=== PATIENT | female | born 1950 | race African-American/Black ===

== ENCOUNTER 2017-10-17 09:46 | Outpatient (CLI) | payer MEDICARE, MEDICAID | END 2017-10-17 09:47 | disposition home or self-care (01) | LOC: BICMAMMO 09:46 | PROVIDERS: ATTEND Internal Medicine Hematology & Oncology | DX: N95.9 Unspecified menopausal and perimenopausal disorder (principal); C50.411 Malignant neoplasm of upper-outer quadrant of right female breast | CPT/HCPCS: 77080 ==

== ENCOUNTER 2017-12-07 10:09 | Outpatient (CLI) | payer MEDICARE, MEDICAID | END 2017-12-07 10:10 | disposition home or self-care (01) | LOC: BICMRI 10:09 | PROVIDERS: ATTEND Psychiatry & Neurology Neurology | DX: G44.1 Vascular headache, not elsewhere classified (principal) | CPT/HCPCS: 70553; 82565 ==

== ENCOUNTER 2018-04-24 13:44 | Outpatient (CLI) | payer MEDICARE, MEDICAID ==
--- NOTE | 2018-04-24 15:48 | CT ---
CT OF THE ABDOMEN AND PELVIS WITHOUT CONTRAST: Date: 04/24/18 INDICATION: History of renal calculus and left-sided flank pain. Patient reports burning upon urination. FINDINGS: No definite renal or ureteral calculus is evident. No hydronephrosis is evident. There are small phle boliths within the left gonadal vein. Beam scattered artifact of the patient's left total hip prosthe sis slightly limits image detail of the lower pelvis. No definite free fluid is evident. Visualized a spects of the bladder are unremarkable. There are patchy opacities within the lingula which may reflect changes of pneumonia. Unopacified liver, pancreas, and adrenal glands appear within normal limits. The spleen remains surgi shanique absent from comparison dated 01/31/17. No free fluid or enlarged lymph nodes are evident. There are scattered vascular calcifications. There is small bowel anastomosis within the right lower quadrant of the abdomen which is stable. There is advanced osteoarthrosis of the right hip. There is mild spondylosis of the lumbar spine most pronounced at L5-S1. There is mild degenerative change of both SI joints. IMPRESSION: No renal or ureteral calculus. Patchy opacities in the lingula. Pneumonia is of concern. Recommend correlation with the physical e xam. POS: [facility]
== END 2018-04-24 13:45 | disposition home or self-care (01) ==
LOC: BICCT 13:44
PROVIDERS: ATTEND Urology
DX: N20.0 Calculus of kidney (principal); K14.8 Other diseases of tongue
CPT/HCPCS: 74176

== ENCOUNTER 2018-08-12 13:26 | Outpatient (CLI) | payer MEDICARE, MEDICAID ==
--- NOTE | 2018-08-12 16:29 | RAD ---
TWO VIEWS LEFT HIP: HISTORY: Pain. COMPARISON: None. FINDINGS: There is uncomplicated left hip prosthesis. No perihardware lucency. No fracture. Visualized left bony pelvis is unremarkable. IMPRESSION: Uncomplicated left hip arthroplasty. POS: [facility]
== END 2018-08-12 13:27 | disposition home or self-care (01) ==
LOC: RAD 13:26
PROVIDERS: ATTEND Nurse Practitioner Family
DX: M25.552 Pain in left hip (principal); Z96.642 Presence of left artificial hip joint

== ENCOUNTER 2018-08-27 14:07 | Outpatient (CLI) | payer MEDICARE, MEDICAID | END 2018-08-27 14:08 | disposition home or self-care (01) | LOC: BICMAMMO 14:07 | PROVIDERS: ATTEND Internal Medicine Hematology & Oncology | DX: Z08 Encounter for follow-up examination after completed treatment for malignant neoplasm (principal); Z85.3 Personal history of malignant neoplasm of breast | CPT/HCPCS: 77066; G0279 ==

== ENCOUNTER 2018-09-25 13:53 | Outpatient (CLI) | payer MEDICARE, MEDICAID ==
--- NOTE | 2018-09-25 14:34 | RAD ---
TWO VIEWS CHEST: Comparison: 08-17-15 History: Dyspnea. FINDINGS: Two views of the chest show normal sized cardiomediastinal silhouette. There is no evidence of consol idation, mass, or pleural effusion. Degenerative changes are seen in the spine. IMPRESSION: No evidence of acute cardiopulmonary disease. POS: [facility]
== END 2018-09-25 13:54 | disposition home or self-care (01) ==
LOC: RAD 13:53
PROVIDERS: ATTEND Anesthesiology Pain Medicine
DX: R06.00 Dyspnea, unspecified (principal)
CPT/HCPCS: 71046

== ENCOUNTER 2018-12-26 15:04 | Outpatient (CLI) | payer MEDICARE, MEDICAID ==
--- NOTE | 2018-12-26 17:15 | MRI ---
MRI BRAIN NONCONTRAST: 12/26/18 HISTORY: 68-year-old female with headache. FINDINGS: There is prominent hyperostosis frontalis interna. The ventricles are normal in size and configuratio n. There is no major intraaxial signal abnormality, restricted diffusion, midline shift or any other mass effect, recent intraaxial hemorrhage, or extraaxial fluid collection. IMPRESSION: Essentially normal. jn[] POS: [facility]
== END 2018-12-26 15:05 | disposition home or self-care (01) ==
LOC: BICMRI 15:04
PROVIDERS: ATTEND Family Medicine
DX: R51 Headache (principal)
CPT/HCPCS: 70551

== ENCOUNTER 2019-08-28 09:35 | Outpatient (CLI) | payer MEDICARE, MEDICAID ==
--- NOTE | 2019-09-04 13:25 | MMO ---
Bilateral MAMMO Bilat Diag DDI+IZABEL. CLINICAL HISTORY: Patient is 69 years old and is seen for diagnostic exam. The patient has no family history of breast cancer. The patient has a history of excisional breast biopsy procedure revealed invasive lobular right breast carcinoma in June, and Ultrasound guided core biopsy procedure revealed invasive lobular right breast carcinoma in May,. The patient has a history of right Ultrasound Guided Core Biopsy in May,, left Stereotatic Biopsy in July, and right Excisional Biopsy - benign. VIEWS: The views performed were: bilateral craniocaudal with tomosynthesis; bilateral mediolateral oblique with tomosynthesis; and bilateral mediolateral with tomosynthesis. FILMS COMPARED: The present examination has been compared to prior imaging studies performed at [facility] on 04/07/2016, 05/02/2017, 05/11/2017 and 08/27/2018. This study has been interpreted with the assistance of computer-aided detection. MAMMOGRAM FINDINGS: The breasts are heterogeneously dense, which could obscure a lesion on mammography. Finding 1: There are stable post operative changes seen in the right breast. Finding 2: There are stable benign appearing calcifications seen in both breasts. There are no suspicious masses, suspicious calcifications, or new areas of architectural distortion. IMPRESSION: THERE IS NO MAMMOGRAPHIC EVIDENCE OF MALIGNANCY. A ROUTINE FOLLOW-UP MAMMOGRAM IN 1 YEAR IS RECOMMENDED. THE RESULTS OF THIS EXAM WERE SENT TO THE PATIENT. ACR BI-RADS Category 2 - Benign finding MAMMOGRAPHY NOTE: 1. A negative mammogram report should not delay a biopsy if a dominant of clinically suspicious mass is present. 2. Approximately 10% to 15% of breast cancers are not detected by mammography. 3. Adenosis and dense breasts may obscure an underlying neoplasm. Reported by: DEREK ROGERS MD Electonically Signed: [id number]
== END 2019-08-28 09:36 | disposition home or self-care (01) ==
LOC: BICMAMMO 09:35
PROVIDERS: ATTEND Internal Medicine Hematology & Oncology
DX: Z08 Encounter for follow-up examination after completed treatment for malignant neoplasm (principal); Z85.3 Personal history of malignant neoplasm of breast
CPT/HCPCS: 77066; G0279

== ENCOUNTER 2019-11-26 19:17 | Inpatient (IN) | payer MEDICARE, MEDICAID ==
--- NOTE | 2019-11-26 19:46 | RAD ---
RADIOGRAPH CHEST 1 VIEW: DATE: 11/26/2019 TIME: 7:42 PM HISTORY: 69-year-old female with chest pain COMPARISON: 09/25/2018 FINDINGS: Shallower inspiration on the current study may be responsible for the minimally increased attenuation of right lung compared to previous study, as well as slight asymmetrical positioning. No consolidation. No pneumothorax. No evidence of pneumoperitoneum. Again noted is the severe bony hyper trophy at the inferior aspect of right humeral head. IMPRESSION: 1. No compelling evidence of acute disease. 2. Severe osteoarthrosis of glenohumeral joint of right shoulder.
[2019-11-26 19:55] LABS: Hemoglobin 11.9 g/dL (12.0-16.0); Mean Corpuscular HGB CONC 31.9 g/dL (32.0-36.0); Mean Corpuscular Hemoglobin 31.4 pg (27.0-31.0); Mean Corpuscular Volume 98.6 fL (78.0-98.0); Platelet Count 269 thou/uL (130-400); RBC Distribution Width 12.7 % (11.5-14.5); White Blood Cell (WBC) Count 19.8 thou/uL (4.8-10.8)
[2019-11-26 20:14] LABS: Band 21 % (5-11); Eosinophils 1 % (0-10); Lymphocytes 1 % (21-51); MDiff Complete? YES; Metamyelocyte 1 % (0-0); Monocytes 2 % (0-10); Neutrophil 74 % (42-75); Platelet Morphology Comment Appears Adequate; Polychromasia SLIGHT = 2-3 cells (100X) (0-2/hpf)
[2019-11-26 20:15] LABS: ALT (SGPT) 852 U/L (8-55); AST (SGOT) 1121 U/L (5-34); Albumin 3.5 g/dL (3.4-4.8); Alkaline Phosphatase 273 U/L (40-110); Anion Gap 14 mmol/L (10-20); BUN (Urea Nitrogen) 13 mg/dL (9.8-20.1); Calc. Creatinine Clearance 0 mL/min (70-130); Carbon Dioxide 19 mmol/L (23-31); Chloride 110 mmol/L (98-107); Estimated GFR-MDRD 41; Globulin 3.5 g/dL (2.4-3.5); Glucose 110 mg/dL (80-115); Potassium 3.8 mmol/L (3.5-5.1); Sodium 139 mmol/L (136-145)
[2019-11-26 20:28] LABS: Lipase 3343 U/L (8-78)
[2019-11-26] MEDS ORDERED: Ondansetron PF 4 MG/2 ML Vial ONE (20:43)
[2019-11-26] MEDS ORDERED: Morphine 4 MG/ML VIAL ONE (20:43)
[2019-11-26] MEDS ORDERED: Cefepime 2 GM VIAL ONE (20:44)
--- NOTE | 2019-11-26 21:40 | ULT ---
ULTRASOUND GALLBLADDER RIGHT UPPER QUADRANT: 11/26/19 HISTORY: Abdominal pain. COMPARISON: None. FINDINGS: Real time zhou scale and color evaluation of the right upper quadrant of the abdomen was performed. Portal vein is patent. Hepatic echotexture appears normal. There is mild intrahepatic biliary dilatat ion. The common bile duct is dilated at 1.2 cm. No pericholecystic fluid. No gallbladder distention. Liver measures 13.6 cm in length. There is a cyst anterior pole right kidney measuring 1.6 cm in size. Right kidney measures 8.7 x 4.4 x 4.8 cm. IMPRESSION: 1. Dilated common bile duct without intraluminal choledocholithiasis appreciated. MRCP may be be neficial. 2. Simple cyst of the right kidney. 3. Mild intrahepatic biliary dilatation. 4. No cholelithiasis or evidence of cholecystitis. POS: [facility]
[2019-11-26] MEDS ORDERED: metroNIDAZOLE 500 MG/100 ML BAG ONE (22:16)
[2019-11-26] MEDS ORDERED: diphenhydrAMINE 25 MG CAP ONE (22:23)
[2019-11-26] MEDS ORDERED: MEROPENEM 1 GM/50 ML 1 GM in Premix Bag 1 BAG IVPB SCH (22:45)
[2019-11-26] MEDS ORDERED: hydrALAZINE 20 MG/ML VIAL SLOW IVP PRN (22:48)
[2019-11-26] MEDS ORDERED: cloNIDine 0.1 MG TAB PO PRN (22:48)
[2019-11-26] MEDS ORDERED: Morphine 2 MG/ML SYRINGE SLOW IVP PRN (22:48)
[2019-11-26] MEDS ORDERED: Ondansetron PF 4 MG/2 ML Vial IVP PRN (22:48)
[2019-11-26] MEDS ORDERED: Labetalol HCl 100 MG/20 ML VIAL SLOW IVP PRN (22:48)
[2019-11-26] MEDS ORDERED: Promethazine HCl 12.5 MG in Sodium Chloride 0.9% 50 ML IVPB PRN (22:48)
--- NOTE | 2019-11-26 22:50 | PDOC.HHP ---
Hospitalist HPI - History of Present Illness Abdominal pain History of Present Illness: Patient is a 69 year old female with PMH HTN who presents to ED for abdominal pain raditing to back x 1-2 days. She denies history of gallstones, has her GB, PMH significant for back pain and osteoarthritis and hip replacement, patient reports that the pain is on the R side, decreased PO intake, afebrile, she had low BP but improved with IVF, labs concerning for elevated LFTs, elevated lipase , given this RUQ US performed w/ gallstones, choledocolithiasis, ED contacted surgery Dr Leon and GI Dr Crowder and patient to be admitted for presumed cholecystitis/choledocolithiasis/gallstone pancreatitis. ED Course: VITAL SIGNS SunNovember 26, 2019 22:52 NORAH Degroot Jennifer BP: 106/76 Pulse: 88 Resp: 18 Temp: 98.7 (Oral) Pain: 9 O2 sat: 98 on (Room Air) Time: 11/26/2019 22:52. Hospitalist ROS - Review of Systems Constitutional: denies: fever, chills, sweats, weakness, malaise, other Eyes: denies: pain, vision change, conjunctivae inflammation, eyelid inflammation, redness, other ENT: denies: ear pain, ear discharge, nose pain, nose discharge, nose congestion , mouth pain, mouth swelling, throat pain, throat swelling, other Respiratory: denies: cough, dry, shortness of breath, hemoptysis, SOB with excertion, pleuritic pain, sputum, wheezing, other Cardiovascular: denies: chest pain, palpitations, orthopnea, paroxysmal noc. dyspnea, edema, light headedness, other Gastrointestinal: reports: nausea, vomiting, abdominal pain. denies: diarrhea, constipation, melena, hematochezia, other Genitourinary: denies: dysuria, frequency, incontinence, hematuria, retention, other Musculoskeletal: reports: back pain. denies: neck pain, shoulder pain, arm pain , hand pain, leg pain, foot pain, other Skin: denies: rash, lesions, palak, bruising, other Neurological: denies: weakness, numbness, incoordination, change in speech, confusion, seizures, other Hospitalist History - Past Medical History Other Medical History: HTN arthritis back pain depression - Past Surgical History Other Surgical History: C section tubal ligation hip replacement - Family History Family History: reports: no pertinent history - Social History Smoking Status: Never smoker Alcohol: reports: None Drugs: reports: none - Exam General Appearance: NAD, awake alert Eye: PERRL, anicteric sclera ENT: normocephalic atraumatic, no oropharyngeal lesions, moist mucosa Neck: supple, symmetric, no JVD, no thyromegaly, no lymphadenopathy, no carotid bruit Heart: RRR, no murmur, no gallops, no rubs, normal peripheral pulses Respiratory: CTAB, no wheezes, no rales, no ronchi, normal chest expansion, no tachypnea, normal percussion Gastrointestinal: soft, non-distended, normal bowel sounds, no palpable masses, no hepatomegaly, no splenomegaly, no bruit Gastrointestinal - other findings: tenderness to palpation RUQ, +duvall sign Extremities: no cyanosis, no clubbing, no edema Skin: normal turgor, no lesions, no rashes Neurological: cranial nerve grossly intact, normal sensation to touch, no weakness, no focal deficits, no new deficit Musculoskeletal: normal tone, normal strength, no muscle wasting Psychiatric: normal affect, normal behavior, A&O x 3 Hospitalist Results - Labs Result Diagrams: 11/26/19 19:45 11/26/19 19:45 Lab results: WBC 19.8 thou/uL (4.8-10.8) H 11/26/19 19:45 Hgb 11.9 g/dL (12.0-16.0) L 11/26/19 19:45 Hct 37.4 % (36.0-47.0) 11/26/19 19:45 MCV 98.6 fL (78.0-98.0) H 11/26/19 19:45 Plt Count 269 thou/uL (130-400) 11/26/19 19:45 Band Neuts % (Manual) 21 % (5-11) H 11/26/19 19:45 Sodium 139 mmol/L (136-145) 11/26/19 19:45 Potassium 3.8 mmol/L (3.5-5.1) 11/26/19 19:45 Chloride 110 mmol/L (98-107) H 11/26/19 19:45 Carbon Dioxide 19 mmol/L (23-31) L 11/26/19 19:45 BUN 13 mg/dL (9.8-20.1) 11/26/19 19:45 Creatinine 1.51 mg/dL (0.6-1.1) H 11/26/19 19:45 Glucose 110 mg/dL (80-115) 11/26/19 19:45 Lactic Acid 1.6 mmol/L (0.5-2.2) 11/26/19 21:27 Calcium 9.0 mg/dL (7.8-10.44) 11/26/19 19:45 Total Bilirubin 3.0 mg/dL (0.2-1.2) H 11/26/19 19:45 AST 1121 U/L (5-34) H 11/26/19 19:45 ALT 852 U/L (8-55) H 11/26/19 19:45 Alkaline Phosphatase 273 U/L (40-110) H 11/26/19 19:45 Troponin I 0.016 ng/mL (< 0.028) 11/26/19 19:45 Serum Total Protein 7.0 g/dL (6.0-8.3) 11/26/19 19:45 Albumin 3.5 g/dL (3.4-4.8) 11/26/19 19:45 Lipase 3343 U/L (8-78) H 11/26/19 19:45 Additional comment: US Gallbladder RUQ Observe DT: SunNovember 26, 2019 19:35 GB ULTRASOUND GALLBLADDER RIGHT UPPER QUADRANT: 11/26/19 HISTORY: Abdominal pain. COMPARISON: None. FINDINGS: Real time zhou scale and color evaluation of the right upper quadrant of the abdomen was performed. Portal vein is patent. Hepatic echotexture appears normal. There is mild intrahepatic biliary dilatat ion. The common bile duct is dilated at 1.2 cm. No pericholecystic fluid. No gallbladder distention. Liver measures 13.6 cm in length. There is a cyst anterior pole right kidney measuring 1.6 cm in size. Right kidney measures 8.7 x 4.4 x 4.8 cm. IMPRESSION: 1. Dilated common bile duct without intraluminal choledocholithiasis appreciated. MRCP may be be neficial. 2. Simple cyst of the right kidney. 3. Mild intrahepatic biliary dilatation. 4. No cholelithiasis or evidence of cholecystitis. Hospitalist H&P A/P - Plan Plan: Patient is a 69 year old female with PMH HTN admitted for: # cholecystitis w/ choledocolistiasis and likely gallstone pancreatitis - admit to telemetry - PCN allergy noted, start flagyl/levaquin - GI and general surgery consulted by ED, NPO for likely procedure EGD/ERCP vs CCY w/ IOC - follow cultures - IVF, trend labwork, PRN pain and nausea medication in place # sepsis secondary to abdominal infection above - treat as above # history of OA, HTN - PRN pain and BP contol meds in chart # JENNIFER - suspect due to sepsis, IVF and trend BMP # sinus arrhtyhmia on EKG - rate 85 on EKG, monitor on telemetry
[2019-11-26 23:59] VITALS: BMI 44.6
[2019-11-27] MEDS: Sodium Chloride 0.9% 1,000 ML IV SCH ×4 (00:09→23:07)
[2019-11-27] MEDS ORDERED: Montelukast Sodium 10 mg Tablet PO SCH (00:15)
[2019-11-27] MEDS: diphenhydrAMINE 25 MG CAP PO PRN ×2 (02:27→06:12)
[2019-11-27] MEDS: Morphine 2 MG/ML SYRINGE SLOW IVP PRN ×3 (02:27→08:58)
[2019-11-27 05:25] LABS: #Basophils 0.1 thou/uL (0.0-0.2); #Eosinphils 0.5 thou/uL (0.0-0.7); #Lymphocytes 1.1 thou/uL (1.20-3.40); #Monocytes 0.8 thou/uL (0.11-0.59); #Neutrophils 16.4 thou/uL (1.40-6.50); %Basophils 0.6 % (0.0-1.0); %Eosinophils 2.9 % (0.0-10.0); %Lymphocytes 5.7 % (21.0-51.0); %Monocytes 4.3 % (0.0-10.0); %Neutrophils 86.5 % (42.0-75.0); Hemoglobin 10.9 g/dL (12.0-16.0); Mean Corpuscular HGB CONC 30.6 g/dL (32.0-36.0); Mean Corpuscular Hemoglobin 30.9 pg (27.0-31.0); Mean Platelet Volume 7.9 fL (7.4-10.4); Platelet Count 243 thou/uL (130-400); RBC Distribution Width 12.8 % (11.5-14.5); Red Blood Cell (RBC) Count 3.53 mill/uL (4.20-5.40)
[2019-11-27 05:49] LABS: ALT (SGPT) 631 U/L (8-55); AST (SGOT) 618 U/L (5-34); Albumin 3.2 g/dL (3.4-4.8); Alkaline Phosphatase 239 U/L (40-110); Anion Gap 13 mmol/L (10-20); BUN (Urea Nitrogen) 16 mg/dL (9.8-20.1); Bilirubin, Direct 2.9 mg/dL (0.1-0.3); Bilirubin, Total 3.7 mg/dL (0.2-1.2); Calc. Creatinine Clearance 67 mL/min (70-130); Calcium 8.3 mg/dL (7.8-10.44); Carbon Dioxide 15 mmol/L (23-31); Chloride 115 mmol/L (98-107); Estimated GFR-MDRD 44; Glucose 63 mg/dL (80-115); Magnesium 1.7 mg/dL (1.6-2.6); Potassium 3.5 mmol/L (3.5-5.1); Protein, Total 6.4 g/dL (6.0-8.3); Sodium 139 mmol/L (136-145)
[2019-11-27] MEDS ORDERED: metroNIDAZOLE 500 MG in Premix Bag 1 BAG IVPB SCH (06:00)
[2019-11-27] MEDS ORDERED: Prevnar 13-Val Conj/PF 0.5 ML SYRINGE IM ONE (09:00)
[2019-11-27] MEDS: Polyethylene Glycol 3350 17 GM Packet PO SCH (09:01)
[2019-11-27 10:12] LABS: HBCM Index 0.05 S/CO (0-0.79); HBSAg Index 0.21 S/CO (0-0.99); Hep A IgM AB Non-Reactive (NonReactive); Hep A IgM S/CO 0.11 S/CO (0-0.79); Hep B Surf Ag Non-Reactive S/CO (NonReactive); Hep C IgG Ab Non-Reactive (NonReactive); Hep C Index 0.14 S/CO (0-0.79); Hepatitis B Core IgM Abs Non-Reactive (NonReactive)
[2019-11-27 10:56] LABS: INR-International Normal Ratio 1.5; Prothrombin Time 18.2 sec (12.0-14.7)
[2019-11-27] MEDS ORDERED: Lidocaine 1% PF 5 ML VIAL ONE (10:59)
[2019-11-27] MEDS ORDERED: EPINEPHrine 1 MG/10 ML Abboject SYRINGE ONE (10:59)
[2019-11-27] MEDS ORDERED: Rocuronium Bromide 10 MG/ML (10ML VIAL) ONE (10:59)
[2019-11-27] MEDS ORDERED: PROPOFOL 200 MG/20 ML VIAL ONE (10:59)
[2019-11-27] MEDS ORDERED: Ondansetron PF 4 MG/2 ML Vial ONE (10:59)
[2019-11-27] MEDS ORDERED: Glycopyrrolate 0.2 MG/ML 5 ML SYRINGE ONE (10:59)
[2019-11-27] MEDS ORDERED: Succinylcholine Chloride 20 MG/ML 10 ml SYRINGE FS ONE (10:59)
[2019-11-27] MEDS ORDERED: PHENYLEPHRINE-NS 100 MCG/ML 10 ML SYRINGE ONE (10:59)
[2019-11-27] MEDS ORDERED: Dexamethasone 20 MG/5 ML VIAL ONE (10:59)
[2019-11-27] MEDS ORDERED: Indomethacin 50 MG SUPP ONE (12:09)
[2019-11-27] MEDS ORDERED: Iothalamate Meglumine 60% 30 ML VIAL FS ONE (12:09)
[2019-11-27] MEDS ORDERED: Midazolam HCl 2 mg/2 ml Vial ONE (12:33)
[2019-11-27] MEDS ORDERED: Fentanyl 100 MCG/2 ML VIAL ONE (12:33)
[2019-11-27] MEDS: MEROPENEM 1 GM/50 ML 1 GM in Premix Bag 1 BAG IVPB SCH ×2 (13:26→23:03)
--- NOTE | 2019-11-27 15:08 | RAD ---
ERCP: 11/27/19 HISTORY: Abdominal pain. FINDINGS/IMPRESSION: Thirteen spot fluoroscopic intraoperative images during ERCP demonstrate opacification of the common bile duct, left hepatic duct and its branches and portion of the right hepatic duct and the gallbladd er. The bile ducts appear dilated. No persistent filling defects are however seen. POS: [facility]
--- NOTE | 2019-11-27 16:18 | PDOC.HOSPP ---
- Subjective Encounter Date: 11/27/19 Encounter Time: 04:10 non-verbal Subjective: pt seen after came abck from ERCP. dtr at [facility]. pt states that she has abd pain still. - Objective Vital Signs & Weight: Vital Signs (12 hours) Temp Pulse Resp BP Pulse Ox 11/27/19 07:38 98.3 F 82 16 104/57 L 99 11/27/19 04:15 98.2 F 81 18 96/58 L 100 Weight Weight 252 lb 1 oz I&O: 11/26/19 11/27/19 11/28/19 06:59 06:59 06:59 Intake Total 650 Balance 650 Result Diagrams: 11/27/19 05:13 11/27/19 05:13 Hospitalist ROS - Medication Medications: Active Medications Generic Name Dose Route Start Last Admin Trade Name Freq PRN Reason Stop Dose Admin Diphenhydramine HCl 25 mg 11/27/19 02:07 11/27/19 06:12 Benadryl PO 25 mg Q4H PRN Administration Itching Sodium Chloride 1,000 mls @ 125 mls/hr 11/26/19 23:45 11/27/19 05:14 Normal Saline 0.9% IV 1,000 mls .Q8H YESI Administration Meropenem 1 gm/ Device 50 mls @ 100 mls/hr 11/27/19 11:00 11/27/19 13:26 IVPB Not Given 1100,2300 YESI Morphine Sulfate 2 mg 11/27/19 02:22 11/27/19 08:58 Morphine SLOW IVP 2 mg Q2H PRN Administration Moderate to Severe Pain (6-10) Pantoprazole Sodium 40 mg 11/27/19 09:00 11/27/19 08:59 Protonix PO 40 mg DAILY YESI Administration Polyethylene Glycol 17 gm 11/27/19 09:00 11/27/19 09:01 Miralax PO Not Given DAILY YESI Sodium Chloride 10 ml 11/27/19 09:00 11/27/19 08:59 Flush - Normal Saline IVF 10 ml Q12HR YESI Administration - Exam General Appearance: awake alert Eye: PERRL ENT: normocephalic atraumatic Neck: supple Heart: RRR Respiratory: CTAB, normal chest expansion Gastrointestinal: soft, normal bowel sounds, tender to palpation, distended Neurological: no focal deficits Psychiatric: normal affect, A&O x 3 Hosp A/P - Plan # cholecystitis w/ choledocolistiasis Bililary cholelithiasis Bilary cholecystitis - empiric merum - s/p ERCP showing dilations of biliary tree. -prob lab choly tomorrow -NPO and pain control with morphine and on IVF. # sepsis secondary to abdominal infection above - -fw on the adolfo # history of OA, HTN - -several PRN BP meds on board. # JENNIFER - suspect due to sepsis - monitor the renal fn. GI ppx - PPI
--- NOTE | 2019-11-27 17:06 | CON ---
DATE OF CONSULTATION: 11/27/2019 REASON FOR CONSULT: Biliary pancreatitis. HISTORY OF PRESENT ILLNESS: Ms. Lion is a 69-year-old female who was admitted to the hospital last night with right upper quadrant pain, had radiated to her right back, it started a few days ago. She has had this intermittently in the past but never this bad. When she came to the hospital, she was found to have elevated LFTs and an elevated lipase. An ultrasound showed dilated common bile duct, but no gallstones. She has had chronic issues with osteoarthritis and hip replacement and back pain, and it seems that she was evaluated in [address] Skinner. An EGD showed no evidence of ampullary masses. She ultimately underwent an EUS and that study showed just ampullary stenosis with normal LFTs and no bouts of pancreatitis at that time. Recommendations from the endoscopist were, at that time, just to observe her. However, now she appears to have pancreatitis with elevated LFTs and likely is related to ampullary stenosis and sludge or small stones. [place] [address]. She had some fever and chills at home. Presently, she has been started on IV fluids and antibiotics after cultures were obtained. Presently, her pain is a little bit better, although she did receive some morphine this morning. Lipase this morning is pending. LFTs remain elevated. AST, ALT are a little bit further down, but the bilirubin is a little bit higher. PAST MEDICAL HISTORY: Notable for history of breast cancer in 2016. She states this is resolved. She has a history of small bowel resection for a small area of ischemia in [address] Wilkins. The etiology of that was unclear. She has had a previous colonoscopy in 2013, which was reportedly normal with Dr. Skinner. She had a previous EGD in 2016 to look at the ampulla and that was normal and she had an EUS after that. He told me that when I called him today. Arthritis, hypertension. She has had some episodes of overdose of anxiety medicines in the past that were nonintentional. PAST SURGICAL HISTORY: , back surgery, tubal ligation, small bowel resection for the ischemia as noted above and the endoscopies as noted above. She has also had a left hip replacement. PSYCHIATRIC HISTORY: Depression in the past. REVIEW OF SYSTEMS: Positive for shortness of breath. She states she uses inhaler at home, she does not know why. She denies any history of exertional chest pain. She denies any hemoptysis, fever, chills, rashes, myalgias, arthralgias, or flu-like symptoms. MEDICATIONS: 1. Home medications. a. inhaler. b. Hydroxyzine. c. Ventolin inhaler. d. Topiramate. e. Sumatriptan. f. Propranolol. g. Montelukast sodium. h. Kim-D. i. Vitamin D. j. Atorvastatin. k. Aspirin daily. 2. Medications here. a. DuoNeb. b. Catapres. c. Benadryl. d. Hydralazine. e. Labetalol. f. Levofloxacin. g. Metronidazole. h. Singulair. i. Morphine p.r.n. j. Zofran p.r.n. k. Protonix 40 daily. l. MiraLAX. m. Phenergan p.r.n. n. Normal saline at 125 an hour. SOCIAL HISTORY: She denies smoking. She drank in the past, but does not now. She does not use drugs. FAMILY HISTORY: Noncontributory. PHYSICAL EXAMINATION: VITAL SIGNS: Temperature is 98.3, pulse 82, blood pressure was 96/58 at 4 this morning, 104/57 now. GENERAL: She is alert and oriented to person, place, and time. She has a granddaughter at the bedside, who works here at the hospital. She is nonicteric. NECK: Supple, no adenopathy. LUNGS: Clear except for some expiratory wheezing. HEART: Regular rate and rhythm. ABDOMEN: Soft. There is tenderness in the right upper quadrant. There is no rib tenderness. There is no rebound. There is no guarding. EXTREMITIES: No clubbing, cyanosis, or edema. LABORATORY DATA: Sodium 139; potassium 3.5; bicarb 15, it was 19 yesterday. , anion gap is 13. Creatinine is 1.42, it was 1.51 yesterday. Bilirubin is 3.7, it was 3 yesterday. AST is 618, it was 1121 yesterday. ALT is 631, it was 852 yesterday. Alkaline phosphatase is 239, it was 273 yesterday. Previously all her LFTs have been normal except for she had a mild alkaline phosphatase elevation in 2014. Direct bilirubin is 2.9. Her lipase was 3343 yesterday. Labs were pending today. Urine not done. [place] [address], it was 19 yesterday, MCV is 101, platelet count is 243. Blood cultures are pending from yesterday. ASSESSMENT: 1. 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 She may have cholangitis or elevated white count. She is feeling a little better today. Her LFTs have come down some and she may have passed a stone or may be opening up, but with her history of fever and chills at home and rigors and elevated white count, concern for cholangitis exists. 2. Pancreatitis. She seems to be hemodynamically stable. She probably needs a little bit extra fluid. Her hemoglobin has not really come down, but her BUN and creatinine have not gone. Hemoglobin has dropped about a gram with hydration. With her shortness of breath, we will not increase her fluids this time. PLAN: ERCP today. Possible cholecystectomy tomorrow depending on ERCP findings. Risks, benefits, possible complication were discussed with the patient and family. Granddaughter is here at the bedside. There is some risk in making her pancreatitis worse. However, with the symptoms concerning for cholangitis and persistent elevated LFTs and concern for ongoing biliary obstruction and ongoing pain, I think we should proceed with ERCP today. I think the benefits outweigh the risks. They understand this and agree and we will go ahead and proceed with that later today. Job ID: [id number]
[2019-11-27] MEDS: hydrOXYzine 25 MG TAB PO PRN (17:23)
[2019-11-27] MEDS: Montelukast Sodium 10 mg Tablet PO SCH (20:20)
[2019-11-27] MEDS: Acetaminophen 325 MG TAB PO PRN (20:31)
--- NOTE | 2019-11-27 21:15 | OP ---
DATE OF PROCEDURE: 11/27/2019 PRE-PROCEDURE DIAGNOSES: 1. Biliary pancreatitis. 2. Suspected cholangitis. 3. History of ampullary stenosis. POSTPROCEDURE DIAGNOSES: 1. Retained gastric contents in the stomach. 2. Normal-appearing ampulla with some debris around it consistent with passage of sludge versus small stone debris. 3. Mild cholangitis with slightly purulent bile. 4. Gallstone noted on filling of the gallbladder. 5. 2 cm common bile duct with no evidence of intraductal obstruction. 6. After sphincterotomy, purulent material came to the ampulla and some sludge. Sweeping the duct with balloon showed no overt large stones or filling defects. 7. Post sphincterotomy bleeding at the apex of the sphincter and this was controlled with injection of 1:10,000 epinephrine 10 mL and then with 10-Comoran heater probe cautery with good hemostasis. PROCEDURES: Endoscopic retrograde cholangiopancreatography and sphincterotomy with control of bleeding. RECOMMENDATIONS: 1. Continue antibiotics. 2. Monitor LFTs and lipase. 3. If signs of recurrent bleeding, may need repeat endoscopy to control of bleeding. 4. Consider surgical consultation for lap choly in 2 to 3 days, not tomorrow. ANESTHESIA: General. PROCEDURE IN DETAIL: After the patient was informed of the risks, benefits, and possible complications of endoscopy including perforation, reaction to medication, aspiration, pancreatitis, and bleeding, and family was informed this as well, informed consent was obtained. The patient was brought to the endoscopy suite, where she was intubated and placed in prone position. Side-viewing duodenoscope was advanced through the esophagus into the stomach where a large amount of food was encountered. The scope was then slowly advanced beyond this where the pylorus was identified into the duodenum in second portion and was brought into view, which appeared normal. Cannulation was obtained initially with a guidewire and then the catheter followed this up into the biliary tree. Injection of contrast revealed a 2 cm dilated duct, it was actually difficult to fill the duct. We were not able to fill it completely due to its large reservoir size. The gallbladder did begin to fill as well which made it impossible to fill the entire bile duct. There were stones seen in the gallbladder. There was no evidence of intrahepatic ductal filling defects or strictures. The common hepatic duct appeared normal. In the distal duct, there was concern for some small stones or debris. Over the guidewire, a sphincterotomy was performed about 15 to 18 mm in size with good hemostasis. A 15 to 18 mm balloon was advanced in the biliary tree and occlusion cholangiogram performed. The duct was swept several times with some small amount of debris and purulent like bile obtained. Bleeding then ensued from the apex of the sphincterotomy and there appeared to be a small tear there from the balloon. At this point in time, we observed it and it has continued to bleed. We injected 1:10,000 epinephrine ultimately up to 10 mL with some hemostasis. There was still slight oozing. At this point in time, a 7-Comoran heater probe was used to control bleeding. After this, there was good control of hemorrhage. There was drainage of contrast and bile from the biliary tree and no clot. The scope was removed. The patient tolerated the procedure well. There were no complications. Job ID: [id number]
--- NOTE | 2019-11-27 22:08 | CON ---
DATE OF CONSULTATION: CHIEF COMPLAINT: Right upper quadrant abdominal pain. HISTORY OF PRESENT ILLNESS: The patient is a 69-year-old female, who came to the emergency room with a two-day history of right upper quadrant pain radiating to back associated with nausea. She had an ultrasound that showed no gallstones, but a dilated common bile duct. Her LFTs were all elevated. She had an ERCP done, sphincterotomy done. She did have some mild cholangitis. They were able to do sphincterotomy and during the procedure, dye was injected into the gallbladder, which did reveal a gallstone. PAST MEDICAL HISTORY: Significant for morbid obesity, hypertension, depression. PAST SURGICAL HISTORY: She has had section, tubal ligation, hip replacement. She said she had colon surgery done about 3 or 4 years ago for diverticulitis. MEDICATIONS: Include: 1. Kim. 2. Hydroxyzine. 3. Zonisamide. 4. Tylenol No. 3. 5. Ventolin inhaler. 6. Vitamin D. 7. Lipitor. 8. Aspirin. 9. Propranolol. 10. Topiramate. ALLERGIES: SHE HAS AN ALLERGY TO PENICILLIN. SOCIAL HISTORY: She lives with her daughter. PHYSICAL EXAMINATION: VITAL SIGNS: Temperature 98.3, pulse 82, blood pressure 104/57. GENERAL: She is awake, alert, morbidly obese female, in no apparent distress. HEENT: No jaundice. LUNGS: Clear. HEART: Regular rate and rhythm. ABDOMEN: Soft. She is tender in the right upper quadrant to deep palpation. EXTREMITIES: Unremarkable. She has a well-healed surgical scar in the low midline of her abdomen. ASSESSMENT: Bile duct stricture with cholangitis, as well as gallstone. PLAN: I discussed her case with Dr. Garcia. He would like to wait until tomorrow and see how she is doing. If she is doing okay, we can proceed with laparoscopic cholecystectomy. Job ID: [id number]
[2019-11-27] MEDS ORDERED: SUMAtriptan Succinate 25 MG TAB PO SCH (23:15)
[2019-11-28] MEDS: Acetaminophen 325 MG TAB PO PRN ×2 (03:08→06:40)
[2019-11-28] MEDS: SUMAtriptan Succinate 25 MG TAB PO PRN (03:08)
[2019-11-28 05:25] LABS: #Monocytes 0.8 thou/uL (0.11-0.59); #Neutrophils 17.8 thou/uL (1.40-6.50); %Basophils 0.1 % (0.0-1.0); %Eosinophils 0.2 % (0.0-10.0); %Lymphocytes 5.3 % (21.0-51.0); %Monocytes 3.9 % (0.0-10.0); %Neutrophils 90.6 % (42.0-75.0); Hemoglobin 10.4 g/dL (12.0-16.0); Mean Corpuscular HGB CONC 32.2 g/dL (32.0-36.0); Mean Corpuscular Hemoglobin 31.8 pg (27.0-31.0); Mean Corpuscular Volume 98.5 fL (78.0-98.0); Mean Platelet Volume 8.2 fL (7.4-10.4); Platelet Count 232 thou/uL (130-400); RBC Distribution Width 12.6 % (11.5-14.5); Red Blood Cell (RBC) Count 3.26 mill/uL (4.20-5.40); White Blood Cell (WBC) Count 19.7 thou/uL (4.8-10.8)
[2019-11-28 05:44] LABS: ALT (SGPT) 411 U/L (8-55); AST (SGOT) 281 U/L (5-34); Alkaline Phosphatase 232 U/L (40-110); Bilirubin, Direct 1.6 mg/dL (0.1-0.3); Bilirubin, Total 2.1 mg/dL (0.2-1.2); Lipase 383 U/L (8-78); Magnesium 1.9 mg/dL (1.6-2.6); Protein, Total 6.4 g/dL (6.0-8.3)
--- NOTE | 2019-11-28 08:16 | PRG ---
DATE OF SERVICE: 11/28/2019 SUBJECTIVE: The patient states that she complains of a headache, but her abdominal pain is better. No nausea or vomiting. OBJECTIVE: VITAL SIGNS: Her temperature is 98.3, pulse 87, blood pressure 112/68. GENERAL: She looks more comfortable. ABDOMEN: Soft, nondistended. Mild right upper quadrant tenderness. LABORATORY DATA: Her white count is 19.7, H and H of 10 and 32, and platelet count of 232. Her bilirubin has dropped from 3.7 to 2.1. Her lipase has gone from 3000 to 300. Her LFTs are coming down. ASSESSMENT: Status post endoscopic retrograde cholangiopancreatography with cholelithiasis. PLAN: Laparoscopic cholecystectomy. CONSENT: I have discussed planned procedure as well as risk of bleeding, infection, injury to bile duct, injury to bowel, need to open. She understands and gives informed consent. Job ID: [id number]
[2019-11-28] MEDS ORDERED: Levofloxacin 500 mg/D5W 100 ml Premix Bag ONE (10:45)
[2019-11-28] MEDS ORDERED: Lidocaine 1% w/Epinephrine 1:100K 20 ML VIAL ONE (10:55)
[2019-11-28] MEDS ORDERED: Bupivacaine 0.25% HCL 30 ML VIAL ONE (10:55)
[2019-11-28] MEDS ORDERED: Fentanyl 100 MCG/2 ML VIAL ONE ×3 (11:12→13:11)
[2019-11-28] MEDS: Polyethylene Glycol 3350 17 GM Packet PO SCH (11:59)
[2019-11-28] MEDS: Sodium Chloride 0.9% 1,000 ML IV SCH ×3 (11:59→23:44)
[2019-11-28] MEDS ORDERED: Ondansetron PF 4 MG/2 ML Vial ONE (12:00)
[2019-11-28] MEDS ORDERED: Rocuronium Bromide 10 MG/ML (10ML VIAL) ONE (12:00)
[2019-11-28] MEDS ORDERED: Dexamethasone 20 MG/5 ML VIAL ONE (12:00)
[2019-11-28] MEDS ORDERED: Lidocaine 1% PF 5 ML VIAL ONE (12:00)
[2019-11-28] MEDS ORDERED: PROPOFOL 200 MG/20 ML VIAL ONE (12:00)
[2019-11-28] MEDS ORDERED: Ondansetron PF 4 MG/2 ML Vial IVP PRN (12:38)
[2019-11-28] MEDS ORDERED: Calcium Carbonate 500 MG ChewTAB PO PRN (12:38)
[2019-11-28] MEDS ORDERED: Dextrose 5% in Water 1,000 ML IV PRN (12:38)
[2019-11-28] MEDS ORDERED: Morphine 4 MG/ML VIAL SLOW IVP PRN (12:38)
[2019-11-28] MEDS ORDERED: HYDROcodone/Acetaminophen 10/325 mg Tablet PO PRN (12:38)
[2019-11-28] MEDS ORDERED: hydrALAZINE 20 MG/ML VIAL SLOW IVP PRN (12:38)
[2019-11-28] MEDS ORDERED: Promethazine HCl 25 MG/ML VIAL IM PRN ×2 (12:38→12:48)
[2019-11-28] MEDS ORDERED: Mag-Al 1200 mg/1200 mg/30 ML UDCUP PO PRN (12:38)
[2019-11-28] MEDS ORDERED: Dextrose 50% Abboject 50 ML SYRINGE SLOW IVP PRN (12:38)
[2019-11-28] MEDS ORDERED: Ondansetron HCl/PF 4 MG/2 ML Vial IVP PRN (12:48)
[2019-11-28] MEDS ORDERED: Promethazine HCl 25 MG/ML VIAL SLOW IVP PRN (12:48)
[2019-11-28] MEDS: MEROPENEM 1 GM/50 ML 1 GM in Premix Bag 1 BAG IVPB SCH ×2 (13:37→23:42)
[2019-11-28] MEDS: Topiramate 100 MG TAB PO SCH (13:38)
[2019-11-28] MEDS: HYDROcodone/Acetaminophen 10/325 mg Tablet PO PRN ×2 (14:17→20:25)
[2019-11-28] MEDS: Morphine 2 MG/ML SYRINGE SLOW IVP PRN ×2 (15:22→21:48)
--- NOTE | 2019-11-28 16:36 | PDOC.HOSPP ---
- Subjective Encounter Date: 11/28/19 Encounter Time: 03:30 Subjective: pt returned from OR, distressful with pain, nurinsg will provide morphine IV shortly. s/p lap bakari. - Objective Vital Signs & Weight: Vital Signs (12 hours) Temp Pulse Resp BP Pulse Ox 11/28/19 13:35 98.0 F 76 16 123/66 98 11/28/19 07:18 98.3 F 87 18 112/68 98 Weight Weight 252 lb 1 oz I&O: 11/27/19 11/28/19 11/29/19 06:59 06:59 06:59 Intake Total 650 1530 Output Total 1150 Balance 650 380 Result Diagrams: 11/28/19 05:01 11/27/19 05:13 Hospitalist ROS - Medication Medications: Active Medications Generic Name Dose Route Start Last Admin Trade Name Freq PRN Reason Stop Dose Admin Acetaminophen 650 mg 11/27/19 20:22 11/28/19 06:40 Tylenol PO 650 mg Q4H PRN Administration Headache/Fever or Pain Hydrocodone Bitart/Acetaminophen 2 tab 11/28/19 12:38 11/28/19 14:17 Aurora 10/325 PO 2 tab Q6H PRN Administration Severe Pain (7-10) Diphenhydramine HCl 25 mg 11/27/19 02:07 11/27/19 06:12 Benadryl PO 25 mg Q4H PRN Administration Itching Hydroxyzine HCl 50 mg 11/27/19 17:00 11/27/19 17:23 Atarax PO 50 mg Q6H PRN Administration .ITCHING Sodium Chloride 1,000 mls @ 125 mls/hr 11/26/19 23:45 11/28/19 15:51 Normal Saline 0.9% IV Not Given .Q8H YESI Meropenem 1 gm/ Device 50 mls @ 100 mls/hr 11/27/19 11:00 11/28/19 13:37 IVPB 50 mls 1100,2300 YESI Administration Montelukast Sodium 10 mg 11/27/19 21:00 11/27/19 20:20 Singulair PO 10 mg HS YESI Administration Morphine Sulfate 2 mg 11/27/19 02:22 11/28/19 15:22 Morphine SLOW IVP 2 mg Q2H PRN Administration Moderate to Severe Pain (6-10) Pantoprazole Sodium 40 mg 11/27/19 09:00 11/28/19 13:37 Protonix PO 40 mg DAILY YESI Administration Polyethylene Glycol 17 gm 11/27/19 09:00 11/28/19 11:59 Miralax PO Not Given DAILY YESI Sodium Chloride 10 ml 11/27/19 09:00 11/28/19 11:59 Flush - Normal Saline IVF Not Given Q12HR YESI Sumatriptan Succinate 25 mg 11/28/19 09:00 11/28/19 03:08 Imitrex PO 25 mg DAILYPRN PRN Administration Migraine Headache Topiramate 100 mg 11/28/19 09:00 11/28/19 13:38 Topamax PO 100 mg DAILY YESI Administration - Exam General Appearance: ill appearing Eye: PERRL ENT: normocephalic atraumatic Neck: supple Heart: RRR Respiratory: CTAB Gastrointestinal: normal bowel sounds Gastrointestinal - other findings: abd dressing- lap bakari Hosp A/P - Plan # cholecystitis w/ choledocolistiasis Bililary cholelithiasis Bilary cholecystitis - empiric merum - s/p ERCP showing dilations of biliary tree. -s/p lab bakari - CW IVF, pain meds, antiemetic. - when able, will start PO. -dc abx in 1 to 2 days if clinically improving and wbcs trending down and cx neg. # sepsis secondary to abdominal infection above - -fw on the adolfo # history of OA, HTN - -several PRN BP meds on board. # JENNIFER - suspect due to sepsis - monitor the renal fn. GI ppx - PPI
[2019-11-28] MEDS: Ketorolac Tromethamine 30 MG/ML VIAL IVP SCH ×2 (17:08→23:42)
--- NOTE | 2019-11-28 17:32 | OP ---
DATE OF PROCEDURE: 11/28/2019 PREOPERATIVE DIAGNOSIS: Cholangitis with choledocholithiasis. PROCEDURE PERFORMED: Laparoscopic cholecystectomy. INDICATIONS: This is a 69-year-old female, who presented with severe right upper quadrant pain. Ultrasound initially did not show any gallstones, but a dilated common bile duct and elevated liver functions. She underwent ERCP with sphincterotomy yesterday for a stenosis of the ampulla and cholangiogram showed a gallstone. FINDINGS: Acute cholecystitis with a thickened gallbladder wall, dilated. DESCRIPTION OF PROCEDURE: After informed consent was obtained, the patient was taken to the operating room and given general endotracheal anesthesia, placed in supine position. Abdomen was prepped and draped in usual fashion. Local anesthesia was infiltrated subcutaneously and deep and a supraumbilical incision was performed. Subcu divided sharply. The fascia was grasped with 2 stay sutures of 0 Vicryl placed through each side of midline. Midline incised. Digital palpation revealed no local adhesions. A blunt 12-mm trocar inserted. Pneumoperitoneum was created to a pressure of 15 mmHg. A 0-degree laparoscope inserted under direct vision, three 5-mm ports were placed subcostally. The gallbladder was distended and thickened. There was omentum encasing it. The omentum was taken down using blunt and sharp dissection. The peritoneum was opened to expose a dilated cystic duct. The cystic artery in critical view. The cystic duct and artery were triply ligated with hemoclips and divided. The gallbladder removed from its fossa utilizing electrocautery and removed from the abdomen through the umbilical port. Hemostasis was assured. The fascia was closed with 0 Vicryl suture in a GraNee needle. Trocars and retractors were removed. The skin was closed with interrupted 4-0 Rapide. Dermabond applied. The patient tolerated the procedure well, transferred to Recovery in good condition. Sponge and needle count verified correct x2. Job ID: [id number]
--- NOTE | 2019-11-28 17:43 | PRG ---
DATE OF SERVICE: 11/28/2019 SUBJECTIVE: Ms. Lion is status post laparoscopic cholecystectomy from today. She states her abdomen was feeling better this morning. She had a bad headache last night, but her stomach is hurting now a little bit after surgery. She is resting comfortably in bed. OBJECTIVE: VITAL SIGNS: Temperature is 98, pulse 76, blood pressure 123/66. Pulse palpable is about 83. LUNGS: Clear. ABDOMEN: Soft, nontender. LABORATORY DATA: White count 19.7, hemoglobin 10.4, platelet count 232, 90% segs, 5% lymphocytes, no bands recorded. BMP was not performed today. Magnesium was 1.9, bilirubin down to 2.1. AST down to 281, ALT 411, alkaline phosphatase 232. Lipase is down to 383. ASSESSMENT: 1. Biliary pancreatitis, status post ERCP with sphincterotomy for ampullary stenosis and biliary sludge. 2. Status post laparoscopic cholecystectomy today. 3. Improving lipase. 4. Stable hemoglobin. RECOMMENDATIONS: Advance diet as tolerated. Recheck lipase, liver function test, and basic metabolic profile as well as CBC tomorrow. If remains stable and improving, can go home. Job ID: [id number]
[2019-11-28] MEDS: Famotidine 20 MG TAB PO SCH (20:24)
[2019-11-28] MEDS: Montelukast Sodium 10 mg Tablet PO SCH (20:24)
[2019-11-28] MEDS: Famotidine/PF 20 mg/2ml Vial SLOW IVP SCH (20:27)
[2019-11-28] MEDS: hydrOXYzine 25 MG TAB PO PRN (21:49)
[2019-11-28] MEDS: diphenhydrAMINE 25 MG CAP PO PRN (23:42)
[2019-11-29] MEDS: HYDROcodone/Acetaminophen 10/325 mg Tablet PO PRN ×3 (04:06→15:28)
[2019-11-29] MEDS: Ketorolac Tromethamine 30 MG/ML VIAL IVP SCH ×3 (05:14→17:14)
[2019-11-29 05:22] LABS: #Lymphocytes 1.3 thou/uL (1.20-3.40); #Neutrophils 15.4 thou/uL (1.40-6.50); %Basophils 0.1 % (0.0-1.0); %Lymphocytes 7.3 % (21.0-51.0); %Monocytes 5.5 % (0.0-10.0); %Neutrophils 87.1 % (42.0-75.0); Hemoglobin 9.1 g/dL (12.0-16.0); Mean Corpuscular HGB CONC 32.2 g/dL (32.0-36.0); Mean Corpuscular Hemoglobin 31.5 pg (27.0-31.0); Mean Corpuscular Volume 97.8 fL (78.0-98.0); Mean Platelet Volume 8.1 fL (7.4-10.4); Platelet Count 212 thou/uL (130-400); RBC Distribution Width 12.6 % (11.5-14.5); White Blood Cell (WBC) Count 17.7 thou/uL (4.8-10.8)
[2019-11-29 05:42] LABS: ALT (SGPT) 288 U/L (8-55); AST (SGOT) 167 U/L (5-34); Albumin 2.9 g/dL (3.4-4.8); Alkaline Phosphatase 180 U/L (40-110); Anion Gap 10 mmol/L (10-20); BUN (Urea Nitrogen) 15 mg/dL (9.8-20.1); Bilirubin, Direct 0.6 mg/dL (0.1-0.3); Bilirubin, Total 0.9 mg/dL (0.2-1.2); Calc. Creatinine Clearance 82 mL/min (70-130); Calcium 8.5 mg/dL (7.8-10.44); Carbon Dioxide 19 mmol/L (23-31); Chloride 115 mmol/L (98-107); Estimated GFR-MDRD 56; Glucose 125 mg/dL (80-115); Lipase 100 U/L (8-78); Magnesium 1.9 mg/dL (1.6-2.6); Potassium 3.9 mmol/L (3.5-5.1); Sodium 140 mmol/L (136-145)
[2019-11-29] MEDS: Acetaminophen 325 MG TAB PO PRN (06:16)
[2019-11-29] MEDS: hydrOXYzine 25 MG TAB PO PRN (06:16)
[2019-11-29] MEDS: SUMAtriptan Succinate 25 MG TAB PO PRN (06:16)
[2019-11-29] MEDS: Sodium Chloride 0.9% 1,000 ML IV SCH ×2 (08:17→15:33)
[2019-11-29] MEDS ORDERED: Enoxaparin Sodium 40 MG/0.4 ML SYRINGE SC SCH (09:00)
[2019-11-29] MEDS: Polyethylene Glycol 3350 17 GM Packet PO SCH (09:26)
[2019-11-29] MEDS: Famotidine 20 MG TAB PO SCH (09:27)
[2019-11-29] MEDS: Topiramate 100 MG TAB PO SCH (09:27)
--- NOTE | 2019-11-29 09:27 | PRG ---
DATE OF SERVICE: 11/29/2019 SUBJECTIVE: Postop laparoscopic cholecystectomy, Ms. Lion is complaining of pain at her incision. OBJECTIVE: VITAL SIGNS: She is afebrile. Vital signs are stable. ABDOMEN: Soft and appropriately tender. Wounds are healing well. LABORATORY DATA: Bilirubin is normal now at 0.9, lipase 100, hemoglobin 9.1. ASSESSMENT: History of choledocholithiasis, cholecystitis, status post endoscopic retrograde cholangiopancreatography and laparoscopic cholecystectomy. PLAN: She can be discharged home at any time. Dr. Leon left prescriptions on the chart. Follow up with Dr. Leon in 2 weeks. Job ID: [id number]
[2019-11-29] MEDS: Famotidine/PF 20 mg/2ml Vial SLOW IVP SCH (10:02)
--- NOTE | 2019-11-29 13:14 | PRG ---
DATE OF SERVICE: 11/29/2019 SUBJECTIVE: Ms. Lion states she is tolerating liquids. She denies melena. She has actually been ambulating in the luna and does get short of breath little bit easily. OBJECTIVE: VITAL SIGNS: Temperature 98, pulse 82, blood pressure 133/61. ABDOMEN: Soft, nontender. LUNGS: Clear. NEUROLOGIC: She is alert and oriented. LABORATORY DATA: White count 17,000, hemoglobin 9.1, and platelet count 212. Sodium 140, potassium 3.9, BUN creatinine are 15 and 1.15. Liver function tests are improving. Bilirubin is down to 0.9. AST and ALT are 167 and 288. Alkaline phosphatase is down to 188. Lipase is 100. ASSESSMENT: 1. Biliary pancreatitis, resolving. 2. Choledocholithiasis and ampullary stenosis, status post endoscopic retrograde cholangiopancreatography and cholecystectomy. 3. Deconditioning. 4. Leukocytosis secondary to pancreatitis and acute cholecystitis. Blood cultures were negative on admission. PLAN: If the patient can ambulate and get around and take care of herself, I agree she can go home today. If not, then we will be keeping her for one more day for intense physical therapy before discharge. Internal Medicine is going to have her walk with Physical Therapy and then make a decision later today. Job ID: [id number]
[2019-11-29] MEDS: MEROPENEM 1 GM/50 ML 1 GM in Premix Bag 1 BAG IVPB SCH (14:38)
[2019-11-29 15:51] VITALS: BP 139/68; TEMP 98.5
--- NOTE | 2019-11-30 02:34 | DIS ---
DATE OF ADMISSION: 11/26/2019 DATE OF DISCHARGE: 11/29/2019 DISCHARGE DIAGNOSES: 1. Acute cholecystitis, choledocholithiasis with biliary pancreatitis. 2. Leukocytosis. 3. Transaminitis. 4. Acute kidney injury. 5. Ampullary stenosis and cholangitis. CONSULTATIONS: 1. Dr. Kev Garcia with GI. 2. Dr. Jesse Leon with General Surgery. PROCEDURES: Laparoscopic cholecystectomy on 11/27, ERCP on 11/26 with sphincterotomy. BRIEF HISTORY OF PRESENT ILLNESS: This is a 69-year-old female with a past medical history of hypertension, who presented to the emergency room with abdominal pain radiating to her back for the past 1-2 days. Upon presentation to the emergency room, her vital signs were normal. She was noted to have an AST of 1121, ALT of 852, and an alkaline phosphatase of 273. Her bilirubin was elevated at 3.0. She underwent an abdominal ultrasound of her right upper quadrant, which showed a dilated common bile duct. The patient was admitted for further workup. HOSPITAL COURSE: Acute cholangitis/cholecystitis secondary to choledocholithiasis: GI was consulted and the patient underwent an ERCP on 11/26. She was noted to have normal-appearing ampulla with some debris surrounding it consistent with passage of sludge versus small stone. Her bile was also slightly purulent. She was also noted to have a gallstone. She underwent sphincterotomy with purulent material coming towards the ampulla. Surgery was consulted and the patient underwent cholecystectomy on 11/27. The patient is able to tolerate a regular diet on the day of discharge. She reports some mild abdominal pain in her left upper quadrant near her surgical incision. Her white blood cell count has improved to 17 from 19 on admission. The patient reports symptomatic improvement in her abdominal pain with meropenem. Therefore, on discharge, she will be prescribed Cipro and Flagyl for a few more days due to her history of penicillin allergy. She should follow up with her PCP in a week and should follow up with Dr. Leon from General Surgery in 2 weeks. Her liver function tests have improved significantly with AST of 167, ALT of 288, alkaline phosphatase of 180. She should have these rechecked as an outpatient. Of note, she was tested for hepatitis, which was negative. Dizziness: The patient reported that she has some dizziness while ambulating, which has been going on for a long time. Her orthostatics was checked, which were negative. She was seen by Physical Therapy, who recommended a walker. This was prescribed on discharge. She was advised to stop taking Topamax and zonisamide. The patient states she was taking this for chronic headaches; however, she had self discontinued this already. She was given a prescription for meclizine on discharge and was advised to consider seeing an ENT physician if her dizziness persists. DISCHARGE PHYSICAL EXAMINATION: VITAL SIGNS: Temperature 98.1, heart rate 82, respiratory rate 16, O2 saturation 97% on room air, blood pressure 133/61. Orthostatic vital signs: Supine 130/60, sitting 127/63, standing 129/69. GENERAL: The patient is morbidly obese. She is alert and oriented x3. CVS: Regular rate and rhythm with no murmurs, rubs, or gallops. LUNGS: Clear to auscultation bilaterally. ABDOMEN: Positive bowel sounds. The patient has left upper quadrant tenderness near her surgical incision. There is no signs of infection noted in her surgical area. She has no distention. EXTREMITIES: No edema. PERTINENT LABORATORY DATA: CBC 11/28: White count 17.7, hemoglobin 9.1, hematocrit 28.3, platelet count of 212. CMP 11/28: Creatinine 1.15, AST 167, ALT 288, alkaline phosphatase 180, direct bilirubin 0.6. Lipase: 3343 on 11/25, which improved to 100 on 11/28. Hepatitis serology 11/26: Negative for A, B, and C. IMAGING: Abdominal ultrasound 11/25: Dilated common bile duct without intraluminal choledocholithiasis appreciated. Simple cyst of the right kidney. Chest x-ray 11/25: Severe osteoarthrosis of the glenohumeral joint of the right shoulder. No compelling evidence of acute disease. ERCP 11/26: Bile ducts appear dilated. No persistent filling defects are seen. There is opacification of the common bile duct, left hepatic duct and its branches and portions of the right hepatic duct and the gallbladder. DISCHARGE CONDITION: Stable. ACTIVITY: The patient should ambulate with a walker. DIET: Heart healthy diet with low fat for the next few days. DISCHARGE MEDICATIONS: New prescriptions: 1. Ciprofloxacin 500 mg p.o. q.12 hours, quantity 7. 2. Flagyl 500 mg p.o. q.8 hours, quantity 9. 3. Meclizine 25 mg p.o. q.8 hours p.r.n., quantity 21. DISCONTINUED MEDICATIONS: 1. Topiramate. 2. Hydroxyzine. 3. Zonisamide. DISCHARGE INSTRUCTIONS: The patient should follow up with Dr. Leon in 2 weeks. She should follow up with her PCP in a week and have her LFTs repeated. She should ambulate with a walker. She should return to the ER if she has any fever, rash, severe abdominal pain, or jaundice. Job ID: [id number] [facility]
--- NOTE | 2019-12-01 04:08 | PQF ---
BENITA ALCANTARA UMA [id number] [facility] [id number] CLINICAL DOCUMENTATION CLARIFICATION FORM: POST DISCHARGE Addendum to original discharge summary date: ____ Late entry note date: __ DATE: 12/01/2019 ATTN: Candelaria Bartlett Please exercise your independent, professional judgment in responding to the clarification form. Clinical indicators are provided on the bottom of this form for your review Please check appropriate box(s) to clarify if the following diagnosis has been ruled in or ruled out: Sepsis [ ] Ruled in diagnosis [ ] Continue to treat [ ] Resolved [ X ] Ruled out diagnosis [ ] Cannot rule out diagnosis [ ] Other diagnosis [ ] Unable to determine For continuity of documentation, please document condition throughout progress notes and discharge summary. Thank You. CLINICAL INDICATORS - SIGNS / SYMPTOMS / LABS Laboratory 11/25 WBC 19.8, Plt count 269, Band 21, Neutrophils 86.5, Lactic Acid 1.6 Blood culture 11/25 No growth at 48 hrs Vital signs 11/25 BP 100/60, Pulse 88, Resp 18, Temp 98.7 H&P p1 11/25 Dr Gutiérrez Presented to ED for Abdominal pain radiating to back x 1- 2 days H&P p4 11/25 Dr Gutiérrez Sepsis likely secondary to Cholecystitis with choledocholithiasis and gallstone pancreatitis H&P p4 11/25 Dr Gutiérrez JENNIFER suspected due tp sepsis PN p1 12/29 Dr Garcia Leukocytosis secondary to pancreatitis and acute cholecystitis. Blood culture were negative on admission RISK FACTORS H&P p1 5/ 69 years-old Female H&P p1 11/25 HTN H&P p4 11/25 Morbid obesity H&P p4 11/25 Cholecystitis with choledocholithiasis and Gallstone pancreatitis Discharge summary p1 11/28 Ampullary stenosis and cholangitis TREATMENTS MAR 5 IV Levofloxacin 500 mg Mar 6 VF NS 1L Sep 24 IV Cefepime 2gm SEP 24 IV Metronidazole 500mg Blood culture 11/25 Abdomen ultrasound 11/25 ERCP 11/26 Dr Garcia Laparoscopic Cholecystectomy 11/27 Dr Leon GE consult 11/26 Mo Moreno (This form is maintained as a part of the permanent medical record) 2014 [employer]. All Rights Reserved [email or web address]
== END 2019-11-29 18:18 | disposition home or self-care (01) | DRG 417 ==
LOC: ERS 19:17 → SURG A 23:44
PROVIDERS: ADMIT Internal Medicine; ATTEND Internal Medicine
PROC: 0F798ZZ Dilation of Common Bile Duct, Via Natural or Artificial Opening Endoscopic (ICD-10-PCS; 2019-11-27)
PROC: BF131ZZ Fluoroscopy of Gallbladder and Bile Ducts using Low Osmolar Contrast (ICD-10-PCS; 2019-11-27)
PROC: 0W3P8ZZ Control Bleeding in Gastrointestinal Tract, Via Natural or Artificial Opening Endoscopic (ICD-10-PCS; 2019-11-27)
PROC: 0FC98ZZ Extirpation of Matter from Common Bile Duct, Via Natural or Artificial Opening Endoscopic (ICD-10-PCS; 2019-11-27)
PROC: 0FT44ZZ Resection of Gallbladder, Percutaneous Endoscopic Approach (ICD-10-PCS; principal; 2019-11-28)
DX: K80.63 Calculus of gallbladder and bile duct with acute cholecystitis with obstruction (principal); K85.10 Biliary acute pancreatitis without necrosis or infection; N17.9 Acute kidney failure, unspecified; Z68.41 Body mass index [BMI] 40.0-44.9, adult; K91.61 Intraoperative hemorrhage and hematoma of a digestive system organ or structure complicating a digestive system procedure; I10 Essential (primary) hypertension; F32.9 Major depressive disorder, single episode, unspecified; M19.90 Unspecified osteoarthritis, unspecified site; Z96.642 Presence of left artificial hip joint; E66.01 Morbid (severe) obesity due to excess calories; Y83.8 Other surgical procedures as the cause of abnormal reaction of the patient, or of later complication, without mention of misadventure at the time of the procedure; R42 Dizziness and giddiness; Z98.51 Tubal ligation status; Z90.49 Acquired absence of other specified parts of digestive tract; Z79.899 Other long term (current) drug therapy; Z79.82 Long term (current) use of aspirin; Z88.0 Allergy status to penicillin; Z28.21 Immunization not carried out because of patient refusal
CPT/HCPCS: 36415; 71045; 74330; 76705; 80048; 80053; 80074; 80076; 83605; 83690; 83735; 84484; 85025; 85610; 87040; 88304; 93005; C1769; J0171; J0692; J1100; J1650; J1885; J1956; J2001; J2185; J2250; J2270; J2405; J2704; J3010; Q0163; S0020

== ENCOUNTER 2020-05-07 07:22 | Outpatient (CLI) | payer MEDICARE, MEDICAID, OTHER ==
[2020-05-08 12:07] LABS: SARS-CoV-2 MS2 Positive; SARS-CoV-2 N Gene Negative; SARS-CoV-2 S Gene Negative; SARS-CoV-2 by NAA Not Detected (NotDetected); SARS-CoV-2 orf1ab Negative
== END 2020-05-07 07:23 | disposition home or self-care (01) ==
LOC: LABBT 07:22
PROVIDERS: ATTEND Internal Medicine
DX: R10.9 Unspecified abdominal pain (principal); K59.00 Constipation, unspecified; R11.0 Nausea; D64.9 Anemia, unspecified; Z20.828 Contact with and (suspected) exposure to other viral communicable diseases
CPT/HCPCS: 87635; U0003

== ENCOUNTER 2020-05-11 07:23 | Day surgery (SDC) | payer MEDICARE, MEDICAID ==
[2020-05-10 08:32] VITALS: BMI 44.6
[2020-05-11] MEDS ORDERED: Albuterol Sulfate 2.5 mg/3 ml Neb ONE (08:35)
[2020-05-11] MEDS ORDERED: Albuterol Sulfate 2.5 mg/3 ml Neb NEB SCH (09:00)
[2020-05-11] MEDS ORDERED: Lidocaine 1% PF 5 ML VIAL ONE (10:05)
[2020-05-11] MEDS ORDERED: PROPOFOL 200 MG/20 ML VIAL ONE (10:05)
[2020-05-11] MEDS ORDERED: Ondansetron PF 4 MG/2 ML Vial ONE (10:05)
[2020-05-11] MEDS ORDERED: Labetalol HCl 100 MG/20 ML VIAL ONE (10:05)
--- NOTE | 2020-05-11 10:46 | OP ---
DATE OF PROCEDURE: 05/11/2020 HEEL SPRAYER FIRST SURGEON: None. PROCEDURES PERFORMED: 1. Esophagogastroduodenoscopy with biopsies. 2. Colonoscopy with snare polypectomy. INDICATIONS: 1. Constipation. 2. Left-sided abdominal pain. 3. Nausea. 4. Anemia of chronic disease. 5. Last colonoscopy was in 2017 with only fair prep. MEDICATIONS: See Anesthesia record. FINDINGS: After discussion of the risks, benefits, and alternatives of the procedure, informed consent was obtained and witnessed. Pre-endoscopic cardiopulmonary examination was satisfactory. Time-out was performed before sedation was achieved. Sedation was achieved with Anesthesia assistance in the endoscopy unit. A Pentax adult upper endoscope was placed into the oropharynx and passed through the cricopharyngeus under direct visualization. The esophageal mucosa appeared normal throughout. The endoscope was advanced into the stomach. Forward and retroflexed views of the entire gastric mucosa were obtained. In the gastric antrum, there was some mild to moderate erosive gastritis with several shallow nonbleeding erosions, patchy erythema, and friability. Also in the gastric antrum, there is a single sessile polyp measuring about 7 mm in diameter. This had a hyperplastic appearance. I obtained biopsies from the polyp, but did not attempt a polyp resection on today's examination. I also obtained biopsies in the gastric antrum and body to rule out H pylori infection. The endoscope was passed through the pylorus and into the first and second portions of the duodenum, which appeared normal. The upper endoscope was completely withdrawn and the patient was repositioned. Digital rectal exam was performed, which was unremarkable. A Pentax adult colonoscope was inserted into the anus and passed forward to the cecum in the usual fashion. The cecal base was identified by the appendiceal orifice as well as the ileocecal valve. The terminal ileum was not intubated. The colonoscope was slowly withdrawn in a gradual and circumferential manner with careful examination of the entire colonic mucosa. The quality of the prep was good. There was a single sessile polyp measuring 3 to 4 mm in size in the ascending colon. This was completely removed with cold snare and retrieved for pathology. There were no other polyps or any mass lesions visualized. There was some scattered small diverticula throughout the colon. Retroflexion in the rectum demonstrates some small internal hemorrhoids. The colonoscope was completely withdrawn and the patient allowed to recover. The patient tolerated the procedure well. There were no immediate postprocedure complications. IMPRESSION: 1. Mild to moderate erosive gastritis in the antrum, biopsied to rule out H pylori. 2. Single 7 mm hyperplastic appearing polyp in the gastric antrum, biopsied for histology. Resection not attempted on this exam. 3. Scattered colonic diverticulosis. 4. 4 mm ascending colon polyp, completely removed with cold snare and retrieved for pathology. 5. Otherwise normal colonoscopy to the cecum. RECOMMENDATIONS: 1. Start with pantoprazole 40 mg by mouth daily. 2. Follow up results of the biopsies. 3. Follow up in the GI Clinic with Dr. Garcia or his physician certified pathology assistant in 3 to 4 weeks. Job ID: [id number]
== END 2020-05-11 10:45 | disposition home or self-care (01) ==
LOC: SDC 07:23
PROVIDERS: ATTEND Internal Medicine
PROC: 0DB78ZX Excision of Stomach, Pylorus, Via Natural or Artificial Opening Endoscopic, Diagnostic (ICD-10-PCS; principal; 2020-05-11)
PROC: 0DBK8ZX Excision of Ascending Colon, Via Natural or Artificial Opening Endoscopic, Diagnostic (ICD-10-PCS; 2020-05-11)
DX: D12.2 Benign neoplasm of ascending colon (principal); K31.7 Polyp of stomach and duodenum; K31.89 Other diseases of stomach and duodenum; K25.9 Gastric ulcer, unspecified as acute or chronic, without hemorrhage or perforation; K57.30 Diverticulosis of large intestine without perforation or abscess without bleeding; K64.8 Other hemorrhoids; K59.00 Constipation, unspecified; D64.9 Anemia, unspecified; M19.90 Unspecified osteoarthritis, unspecified site; K21.9 Gastro-esophageal reflux disease without esophagitis; E78.00 Pure hypercholesterolemia, unspecified; I10 Essential (primary) hypertension; E66.01 Morbid (severe) obesity due to excess calories; Z68.41 Body mass index [BMI] 40.0-44.9, adult; Z79.82 Long term (current) use of aspirin; Z79.899 Other long term (current) drug therapy; Z88.0 Allergy status to penicillin; Z88.8 Allergy status to other drugs, medicaments and biological substances
CPT/HCPCS: 88305; 88312; J2405; J2704; J7611

== ENCOUNTER → 2020-07-14 | Day surgery (SDC) | payer MEDICARE, MEDICAID ==
--- NOTE | 2020-07-14 08:33 | MMO ---
MAMMOGRAM FINDINGS: There are scattered fibroglandular densities. Finding 1: There is a stable area of skin thickening and a stable area of trabecular thickening seen in the right breast. Finding 2: There is an oval mass with associated biopsy clip seen in the sub-areolar region of the right breast. Finding 3: There is an oval mass with associated biopsy clip seen in the middle region of the right breast at 10 o'clock. IMPRESSION: FINDING 2: MASS IN THE SUB-AREOLAR REGION OF THE RIGHT BREAST IS SUSPICIOUS. FINDING 3: MASS IN THE MIDDLE REGION OF THE RIGHT BREAST AT 10 O'CLOCK IS SUSPICIOUS. ACR BI-RADS Category 4 - Suspicious abnormality - biopsy should be considered Reported by: KADEEM CONNELLY MD Electonically Signed: [id number]
--- NOTE | 2020-07-14 08:54 | ULT ---
Ultrasound-guided right breast mass biopsy INDICATION: Suspicious mass in the right breast 12:00 position, retroareolar region; history of prior right breast invasive lobular carcinoma with worsening skin thickening, erythema and new breast masses. COMPARISON: Prior right breast diagnostic ultrasound dated June 09, 2020 TECHNIQUE: Informed consent was obtained. Preprocedure ultrasound identified the suspicious mass in t [place] right breast 12:00 position, retroareolar region. Timeout was performed. Site was prepped and draped in the usual sterile fashion. Buffered 1% lidocaine was administered to overlying subcutaneous tissues. A small dermatotomy was made. A 14-gauge core biopsy device was guided down to the lesion. Four separate core biopsies were obtained of the lesion. Following the fourth sampling, a bio psy clip was placed. Pressure was held at the biopsy site until hemostasis was obtained. Attention was then paid to the additional mass in the right breast 10:00 position, 7 cm from the nipple. Please see this operative note for details concerning that procedure. Patient, following the second biopsy, had her wounds cleansed and received a post clip mammogram to confirm clip deployment. Rohan beltrán tolerated procedure without difficulty. IMPRESSION: BI-RADS Category 4-suspicious abnormalities. Status post ultrasound guided core biopsy of suspicious mass in the right breast 12:00 position retroareolar region. Transcribed Date/Time: 07/14/2020 12:23 PM
--- NOTE | 2020-07-14 08:56 | ULT ---
Ultrasound-guided right breast mass biopsy INDICATION: History of invasive lobular carcinoma with new right breast skin thickening and erythema with two new masses identified in the right breast. Right breast 10:00 lesion approximately 4 cm from the nipple. TECHNIQUE: Informed consent was obtained. Preprocedure ultrasound demonstrated a suspicious mass lesi on the right breast 10:00 position seen on the comparison diagnostic mammogram dated 06/09/2020. The lesion was noted approximately 7 cm from the nipple on the prior exam but on current examination is approximately 4 cm from the nipple. Site overlying this mass lesion was cleansed. Buffered 1% lidocaine was administered to the skin and underlying subcutaneous tissues. A small dermatotomy was m shaggy. A 14-gauge core biopsy device was guided down to the lesion. Four separate core sample were obtained of the lesion. Following sample, a biopsy clip was placed within the lesion. Pressure was h eld at the biopsy site until hemostasis was obtained. Site was then cleansed and bandage. The patient following the biopsy received a post biopsy clip mammogram to confirm clip deployment. Patien t tolerated procedure without difficulty. IMPRESSION: BI-RADS Category 4 suspicious abnormality. Status post ultrasound-guided core biopsy of t he small mass lesion within the right breast 10:00 position approximately 4 cm from the nipple. Transcribed Date/Time: 07/14/2020 12:25 PM
== END ==
LOC: MAMMO 07:23
PROVIDERS: ATTEND Surgery
PROC: 0H9T0ZX Drainage of Right Breast, Open Approach, Diagnostic (ICD-10-PCS; principal; 2020-07-14)
DX: D24.1 Benign neoplasm of right breast (principal); Z88.0 Allergy status to penicillin; Z88.8 Allergy status to other drugs, medicaments and biological substances
CPT/HCPCS: 19083; 19084; 88305; 88341; 88342

== ENCOUNTER 2020-10-08 15:17 | Emergency (ER) | payer MEDICARE, MEDICAID ==
[2020-10-08] MEDS ORDERED: Acetaminophen 500 MG TAB ONE (15:58)
[2020-10-08] MEDS ORDERED: diphenhydrAMINE 25 MG CAP ONE (15:58)
[2020-10-08] MEDS ORDERED: Ketorolac Tromethamine 30 MG/ML VIAL ONE (15:58)
[2020-10-08] MEDS ORDERED: Metoclopramide HCl 10 MG TAB ONE (15:58)
== END 2020-10-08 17:24 | disposition home or self-care (01) ==
LOC: ERS 15:17
DX: R51.9 Headache, unspecified (principal); I10 Essential (primary) hypertension
CPT/HCPCS: 70450; 96372; J1885; Q0163

== ENCOUNTER 2020-11-28 00:39 | Emergency (ER) | payer MEDICARE, MEDICAID ==
[2020-11-28] MEDS ORDERED: Nitroglycerin 0.4 MG TAB 1 EACH ONE (01:03)
[2020-11-28 01:55] LABS: ALT (SGPT) 9 U/L (8-55); AST (SGOT) 23 U/L (5-34); Albumin 3.2 g/dL (3.4-4.8); Alkaline Phosphatase 233 U/L (40-110); Anion Gap 9 mmol/L (10-20); BUN (Urea Nitrogen) 6 mg/dL (9.8-20.1); Bilirubin, Total 0.4 mg/dL (0.2-1.2); Calc. Creatinine Clearance 0 mL/min (70-130); Calcium 8.9 mg/dL (7.8-10.44); Carbon Dioxide 22 mmol/L (23-31); Chloride 112 mmol/L (98-107); Globulin 3.1 g/dL (2.4-3.5); Glucose 147 mg/dL (83-110); Lipase 60 U/L (8-78); Protein, Total 6.3 g/dL (5.8-8.1); Sodium 140 mmol/L (136-145)
[2020-11-28 02:02] LABS: Hemoglobin 9.9 g/dL (12.0-16.0); Mean Corpuscular HGB CONC 32.2 g/dL (32.0-36.0); Mean Corpuscular Hemoglobin 32.7 pg (27.0-31.0); RBC Distribution Width 13.2 % (11.5-14.5); Red Blood Cell (RBC) Count 3.03 mill/uL (4.20-5.40)
[2020-11-28 02:23] LABS: Eosinophils 1 % (0-10); Lymphocytes 74 % (21-51); MDiff Complete? YES; Mean Platelet Volume 8.2 fL (7.4-10.4); Monocytes 4 % (0-10); Neutrophil 20 % (42-75); Platelet Count 237 thou/uL (130-400); White Blood Cell (WBC) Count 6.8 thou/uL (4.8-10.8)
[2020-11-28] MEDS ORDERED: Fentanyl 100 MCG/2 ML VIAL ONE (03:44)
[2020-11-28] MEDS ORDERED: Iopamidol-370 76% 500 ML 1 ML ONE (08:51)
== END 2020-11-28 04:57 | disposition short-term general hospital (02) ==
LOC: ERS 00:39
DX: R07.9 Chest pain, unspecified (principal); M19.90 Unspecified osteoarthritis, unspecified site; I10 Essential (primary) hypertension; Z85.3 Personal history of malignant neoplasm of breast; Z79.82 Long term (current) use of aspirin; Z79.899 Other long term (current) drug therapy
CPT/HCPCS: 36415; 71045; 71275; 74174; 80053; 83690; 83880; 84484; 85025; 93005; J3010

== ENCOUNTER 2020-12-14 08:51 | Outpatient (CLI) | payer MEDICARE, MEDICAID | END 2020-12-14 08:52 | disposition home or self-care (01) | LOC: NM 08:51 | PROVIDERS: ATTEND Internal Medicine Hematology & Oncology | DX: C50.411 Malignant neoplasm of upper-outer quadrant of right female breast (principal); M19.011 Primary osteoarthritis, right shoulder; M19.012 Primary osteoarthritis, left shoulder; M17.0 Bilateral primary osteoarthritis of knee; M19.09 Primary osteoarthritis, other specified site | CPT/HCPCS: 78306; A9503 ==

== ENCOUNTER 2021-01-30 15:26 | Emergency (ER) | payer MEDICARE, MEDICAID | END 2021-01-30 16:34 | disposition home or self-care (01) | LOC: ERS 15:26 | DX: M25.572 Pain in left ankle and joints of left foot (principal); M19.90 Unspecified osteoarthritis, unspecified site; I10 Essential (primary) hypertension; Z79.899 Other long term (current) drug therapy ==